=== PATIENT | female | born 1975 | race Caucasian/White ===

== ENCOUNTER 2022-05-12 21:44 | Emergency (ER) | payer MEDICAID ==
[~2022-05-12] VITALS: Ht 149.9 cm; Wt 86.0 kg
[2022-05-12 22:21] VITALS: BP 173/103
[2022-05-13] MEDS ORDERED: IBUPROFEN 800MG TABLET PO ONE (01:45)
[2022-05-13] MEDS ORDERED: CYCL10TA21 MT (03:50)
[2022-05-13] MEDS ORDERED: IBUP-2029 MT (03:50)
== END 2022-05-13 04:39 | disposition home or self-care (01) ==
LOC: ER 21:44
DX: S80.12XA Contusion of left lower leg, initial encounter (principal); I10 Essential (primary) hypertension; W01.0XXA Fall on same level from slipping, tripping and stumbling without subsequent striking against object, initial encounter; Y93.89 Activity, other specified; Y92.89 Other specified places as the place of occurrence of the external cause; Y99.8 Other external cause status
CPT/HCPCS: 29515; 73610; 73630; 99284